=== PATIENT | male | born 1935 | race Caucasian/White ===

== ENCOUNTER 2020-08-02 00:03 | Emergency (ER) | payer OTHER ==
[~2020-08-02] VITALS: Ht 175.3 cm; Wt 96.2 kg
[2020-08-02 00:10] VITALS: BP_SYST 121
--- NOTE | 2020-08-02 00:10 | NUR ---
Patient to ER bed 6 to gown for evaluation. Side rails up.
--- NOTE | 2020-08-02 00:15 | NUR ---
ER at bedside examining patient.
--- NOTE | 2020-08-02 00:19 | NUR ---
Pt biba for witnessed seizure x today. Pt's daughter witnessed seizure, stating she heard patient making sounds and went to go check on him. Pt is AxOx4, does not remember seizure. Pt has hx of DM, HTN and afib.
--- NOTE | 2020-08-02 00:20 | NUR ---
Seizure precautions in place. Seizure pads applied to onesimo.
[2020-08-02] MEDS ORDERED: NACL 0.9% 1,000 ML IV ONE (00:45)
[2020-08-02 00:59] LABS: BASOPHILS % (AUTO) 0.3 % (0.0-2.0); EOSINOPHILS # (AUTO) 0.4 K/uL (0.0-0.4); EOSINOPHILS % (AUTO) 5.4 % (0.0-4.0); HEMATOCRIT 44.2 % (36-54); HEMOGLOBIN 14.8 g/dL (14.0-18.0); LYMPHOCYTES % (AUTO) 27.6 % (20.5-51.5); MEAN CORPUSCULAR HEMOGLOBIN 31 pg (27-31); MEAN CORPUSCULAR HGB CONC 34 % (32-36); MEAN CORPUSCULAR VOLUME 94 fL (79.0-98.0); MONOCYTES # (AUTO) 0.4 K/uL (0.0-1.0); NEUTROPHILS # (AUTO) 4.4 K/uL (1.8-7.7); NEUTROPHILS % (AUTO) 60.7 % (40.0-70.0); PLATELET COUNT (AUTO) 135 K/uL (130-430); RED BLOOD CELL COUNT(AUTO) 4.71 MIL/uL (4.2-6.2); RED CELL DISTRIBUTION WIDTH 13.8 % (9.0-15.0); WHITE BLOOD COUNT (AUTO) 7.3 K/uL (4.8-10.8)
--- NOTE | 2020-08-02 01:04 | NUR ---
Patient transported to radiology via [facility], accompanied by VICENTE.
--- NOTE | 2020-08-02 01:19 | NUR ---
Pt had active seizure in room 6, lasting 35 seconds approx starting at 0119.
--- NOTE | 2020-08-02 01:20 | NUR ---
Noreen asher in [facility] - 08/02/20 at 0156 by [email or web address] Seizure precautions in place. Seizure pads applied to onesimo. Side rails up.
[2020-08-02] MEDS ORDERED: levETIRAcetam 1,000 MG IV BAG 100 ML IV ONE (01:30)
[2020-08-02 02:08] LABS: ANION GAP 6 (5-15); CALCIUM 8.5 mg/dL (8.4-11.0); CHLORIDE 100 mmol/L (98-107); CREATININE 1.45 mg/dL (0.55-1.30); GLUCOSE 170 mg/dL (70-99); POTASSIUM 4.3 mmol/L (3.5-5.1); SODIUM SERUM 136 mmol/L (136-145); UREA NITROGEN, BLOOD 21 mg/dL (8-21)
[2020-08-02 02:13] LABS: ALANINE AMINOTRANSFERASE 25 U/L (12-78); ALBUMIN 3.4 g/dL (3.4-4.8); ASPARTATE AMINOTRANSFERASE 21 U/L (10-37); TOTAL BILIRUBIN 0.6 mg/dL (0.0-1.0)
[2020-08-02 03:50] VITALS: BP_SYST 121
--- NOTE | 2020-08-02 03:50 | NUR ---
Patient given written and verbal discharge instructions and verbalizes understanding. ER MD discussed with patient the results and treatment provided. Patient in stable condition. ID arm band removed. IV catheter removed intact and dressing applied, no active bleeding. Patient educated on pain management and to follow up with PMD. Opportunity for questions provided and answered. Medication side effect fact sheet provided.
== END 2020-08-02 03:50 | disposition home or self-care (01) ==
LOC: SED 00:03
DX: G40.909 Epilepsy, unspecified, not intractable, without status epilepticus (principal); I48.91 Unspecified atrial fibrillation; E11.9 Type 2 diabetes mellitus without complications; Z95.0 Presence of cardiac pacemaker
CPT/HCPCS: 70450; 36415; 71045; 80053; 83735; 85025; 96365; 96366; 99291; 99292; J1953; J7030; 99285